=== PATIENT | female | born 1955 | race Caucasian/White ===

== ENCOUNTER → 2022-07-25 | Outpatient (CLI) | payer MEDICARE, OTHER ==
[~2022-07-25] MED LIST: CALCIUM + VIT D3 PO; CETIRIZINE HCL10 MG PO; CHOLECALCIFEROL PO; FISH OIL 1,201200 MG PO; FISH OIL PO; FLUTICASONE SPRAY; LIPITOR20 MG PO; VOLTAREN EC 7575 MG PO
[2022-07-25 11:58] LABS: HEMOGLOBIN 13.6 gm/dl (12.3-15.3); RED BLOOD COUNT 4.23 M/UL (4.00-5.10); WHITE BLOOD COUNT 8.9 K/UL (4.5-11.0)
[2022-07-25 12:14] LABS: BUN/CREATININE RATIO 15 (0-10)
== END ==
LOC: EDSTATUS 10:00 → OPSV2 10:00
PROVIDERS: Orthopaedic Surgery
DX: Z01.818 Encounter for other preprocedural examination (principal); M16.11 Unilateral primary osteoarthritis, right hip; R91.8 Other nonspecific abnormal finding of lung field
CPT/HCPCS: 71046; 80048; 85025; 93005

== ENCOUNTER → 2022-08-14 | Outpatient (CLI) | payer MEDICARE, OTHER ==
[~2022-08-14] MED LIST changes: +ASPIR-TRIN325 MG PO; -CALCIUM + VIT D3 PO; +CALCIUM CITRAT1 EAC4 PO; +FLONASE ALLER15.8 ML; -FLUTICASONE SPRAY; +HYDROCODON-ACE1 EAC2 PO
[2022-08-14 11:39] LABS: BUN/CREATININE RATIO 12 (0-10)
== END ==
LOC: LAB 10:39
PROVIDERS: Orthopaedic Surgery
DX: Z01.812 Encounter for preprocedural laboratory examination (principal)
CPT/HCPCS: 36415; 80048; 86850; 86900; 86901

== ENCOUNTER 2022-08-15 09:10 | Day surgery (SDC) | payer MEDICARE, OTHER ==
[~2022-08-15] VITALS: Ht 160 cm; Wt 91.6 kg
[~2022-08-15 09:10] MED LIST changes: -ASPIR-TRIN325 MG PO; -HYDROCODON-ACE1 EAC2 PO
[2022-08-16 04:53] LABS: HEMOGLOBIN 10.7 gm/dl (12.3-15.3); RED BLOOD COUNT 3.4 M/UL (4.00-5.10); WHITE BLOOD COUNT 11.1 K/UL (4.5-11.0)
[2022-08-16] MEDS ORDERED: ASPIR-TRIN325 MG PO (07:43)
[2022-08-16] MEDS ORDERED: HYDROCODON-ACE1 EAC2 PO (07:43)
== END 2022-08-16 13:07 | disposition home or self-care (01) ==
LOC: OR 09:10 → M/S 17:57 → OR 08-16 13:07
PROVIDERS: Orthopaedic Surgery
DX: M16.11 Unilateral primary osteoarthritis, right hip (principal); E78.5 Hyperlipidemia, unspecified; Z87.891 Personal history of nicotine dependence; Z88.1 Allergy status to other antibiotic agents; Z79.899 Other long term (current) drug therapy
CPT/HCPCS: 36415; 72170; 73502; 76000; 80048; 82962; 85025; 97116-GP-CQ; 97161; 97166; 97530; 97530-GP-CQ; 97535; C1776; J0690; J1885; J2250; J2274; J2370; J2405; J2704; J3010; J3301; J7050